=== PATIENT | female | born 2000 | race Two or more races ===

== ENCOUNTER 2022-10-06 14:33 | Emergency (ER) | payer MEDICAID, OTHER ==
[~2022-10-06] VITALS: Ht 165.1 cm; Wt 80.4 kg
[2022-10-06 15:43] LABS: Basophils # (auto) 0 10 ^3/uL (0-0.2); Basophils % (auto) 0.2 % (0.0-2.0); Eosinophils # (auto) 0 10 ^3/uL (0-0.8); Eosinophils % (auto) 0.2 % (0.0-7.0); Hematocrit 44.6 % (36.0-46.0); Hemoglobin 15.3 g/dL (12.2-16.2); Lymphocytes # (auto) 3.7 10 ^3/uL (0.4-5.4); Lymphocytes % (auto) 27.7 % (10.0-50.0); Mean Corpuscular Hemoglobin 31.9 pg (28.0-32.0); Mean Corpuscular Hgb Conc. 34.3 g/dL (32.0-36.0); Monocytes # (auto) 0.6 10 ^3/uL (0-1.3); Monocytes % (auto) 4.5 % (0.0-12.0); Neutrophils # (auto) 9.1 10 ^3/uL (1.6-8.6); Neutrophils % (auto) 67.4 % (37.0-80.0); Nucleated Red Blood Cells % 0.1 %; Red Cell Distribution Width 13.5 % (11.8-14.3); White Blood Cell 13.5 10^3/uL (4.4-10.8)
[2022-10-06 16:00] LABS: Urine Bacteria NONE SEEN /hpf (None Seen); Urine Blood 3+ /uL (Negative); Urine WBC 35 /hpf (0 - 5)
[2022-10-06 16:04] LABS: Urine Specific Gravity 1.025 (1.001-1.035)
[2022-10-06 16:05] LABS: Albumin 4.2 g/dL (3.4-5.0); Calcium 9.6 mg/dL (8.5-10.1); Potassium 4.3 mmol/L (3.5-5.1)
[2022-10-06 16:09] LABS: BUN/Creatinine Ratio 12.5; Total Protein 7.5 g/dL (6.4-8.2)
[2022-10-06] MEDS ORDERED: CEFP200T15 PO (20:19)
[2022-10-06 21:10] VITALS: BP 127/76
== END 2022-10-06 21:19 | disposition home or self-care (01) ==
LOC: ER 14:33
DX: O46.8X1 Other antepartum hemorrhage, first trimester (principal); O23.41 Unspecified infection of urinary tract in pregnancy, first trimester; N39.0 Urinary tract infection, site not specified; R10.2 Pelvic and perineal pain; Z3A.01 Less than 8 weeks gestation of pregnancy
CPT/HCPCS: 36415; 76801; 76817; 80053; 81001; 81025; 84702; 85025; 86850; 86900; 86901

== ENCOUNTER 2023-03-26 08:04 | Emergency (ER) | payer MEDICAID ==
[~2023-03-26] VITALS: Ht 165.1 cm; Wt 77.2 kg
[~2023-03-26 08:04] MED LIST: CEFP200T15 PO; CIPR-173 PO
[2023-03-26 08:30] VITALS: BP 107/50; PULSE 84; RESP 16; TEMP 98.1; O2SAT 98
[2023-03-26 08:58] LABS: Basophils # (auto) 0 10 ^3/uL (0-0.2); Basophils % (auto) 0.5 % (0.0-2.0); Eosinophils # (auto) 0.1 10 ^3/uL (0-0.8); Eosinophils % (auto) 0.7 % (0.0-7.0); Hematocrit 42.8 % (36.0-46.0); Hemoglobin 14.3 g/dL (12.2-16.2); Lymphocytes # (auto) 3.3 10 ^3/uL (0.4-5.4); Lymphocytes % (auto) 36.6 % (10.0-50.0); Mean Corpuscular Hemoglobin 31.5 pg (28.0-32.0); Mean Corpuscular Hgb Conc. 33.3 g/dL (32.0-36.0); Mean Corpuscular Volume 94.6 fL (80.0-100.0); Monocytes # (auto) 0.5 10 ^3/uL (0-1.3); Monocytes % (auto) 5.8 % (0.0-12.0); Neutrophils # (auto) 5.1 10 ^3/uL (1.6-8.6); Neutrophils % (auto) 56.4 % (37.0-80.0); Nucleated Red Blood Cells % 0.1 %; Red Blood Cells 4.53 10^6/uL (4.0-5.20); Red Cell Distribution Width 13.1 % (11.8-14.3)
[2023-03-26 09:03] LABS: Urine Bacteria FEW /hpf (None Seen); Urine Blood 2+ /uL (Negative); Urine Clarity HAZY (Clear); Urine Color Yellow (Yellow); Urine Mucus FEW (None Seen); Urine Protein, UAD Negative (Negative); Urine Specific Gravity 1.021 (1.001-1.035); Urine Urobilinogen Normal (Negative); Urine WBC 9 /hpf (0 - 5)
[2023-03-26 09:12] LABS: Alanine Aminotransferase 12 U/L (7-40); Albumin 4.2 g/dL (3.2-4.8); Alkaline Phosphatase 84 U/L (46-116); Anion Gap 8.3 (5-15); Aspartate Aminotransferase 10 U/L (13-40); BUN/Creatinine Ratio 14.9 (10.0-20.0); Bilirubin, Total 0.5 mg/dL (0.2-1.0); Blood Urea Nitrogen 10 mg/dL (9-23); Calcium 9.3 mg/dL (8.5-10.1); Carbon Dioxide 23.7 mmol/L (20-30); Chloride 108 mmol/L (98-107); Glucose 89 mg/dL (74-106); Sodium 140 mmol/L (136-145); Total Protein 6.6 g/dL (5.7-8.2)
[2023-03-26] MEDS ORDERED: NAPR-746 PO (09:38)
[2023-03-26] MEDS ORDERED: BACDST PO (09:38)
== END 2023-03-26 09:43 | disposition home or self-care (01) ==
LOC: ER 08:04
DX: N39.0 Urinary tract infection, site not specified (principal); F12.10 Cannabis abuse, uncomplicated; Z32.02 Encounter for pregnancy test, result negative
CPT/HCPCS: 36415; 74176; 80053; 81001; 81025; 85025

== ENCOUNTER 2023-04-13 17:49 | Emergency (ER) | payer MEDICAID ==
[~2023-04-13] VITALS: Ht 165.1 cm; Wt 73.5 kg
[~2023-04-13 17:49] MED LIST changes: +BACDST PO; +NAPR-746 PO
[2023-04-13 18:22] LABS: Basophils # (auto) 0.1 10 ^3/uL (0-0.2); Basophils % (auto) 0.6 % (0.0-2.0); Eosinophils # (auto) 0.1 10 ^3/uL (0-0.8); Eosinophils % (auto) 1.5 % (0.0-7.0); Hematocrit 42.4 % (36.0-46.0); Hemoglobin 14.3 g/dL (12.2-16.2); Lymphocytes # (auto) 2.9 10 ^3/uL (0.4-5.4); Lymphocytes % (auto) 30.4 % (10.0-50.0); Mean Corpuscular Hemoglobin 31.9 pg (28.0-32.0); Mean Corpuscular Hgb Conc. 33.6 g/dL (32.0-36.0); Mean Corpuscular Volume 94.8 fL (80.0-100.0); Monocytes # (auto) 0.5 10 ^3/uL (0-1.3); Monocytes % (auto) 5.7 % (0.0-12.0); Neutrophils # (auto) 5.8 10 ^3/uL (1.6-8.6); Neutrophils % (auto) 61.8 % (37.0-80.0); Red Blood Cells 4.47 10^6/uL (4.0-5.20); Red Cell Distribution Width 13.4 % (11.8-14.3); White Blood Cell 9.4 10^3/uL (4.4-10.8)
[2023-04-13 18:31] LABS: Urine Bacteria NONE SEEN /hpf (None Seen); Urine Blood 1+ /uL (Negative); Urine Clarity Clear (Clear); Urine Color Yellow (Yellow); Urine Mucus FEW (None Seen); Urine Protein, UAD TRACE (Negative); Urine Specific Gravity 1.034 (1.001-1.035); Urine WBC 1 /hpf (0 - 5)
[2023-04-13 18:40] LABS: Alanine Aminotransferase 10 U/L (7-40); Albumin 4.5 g/dL (3.2-4.8); Alkaline Phosphatase 90 U/L (46-116); Anion Gap 4.6 (5-15); Aspartate Aminotransferase 10 U/L (13-40); BUN/Creatinine Ratio 16.5 (10.0-20.0); Blood Urea Nitrogen 15 mg/dL (9-23); Calcium 9.5 mg/dL (8.7-10.4); Carbon Dioxide 28.4 mmol/L (20-30); Chloride 108 mmol/L (98-107); Glucose 91 mg/dL (74-106); Potassium 3.6 mmol/L (3.5-5.1); Sodium 141 mmol/L (136-145)
[2023-04-13 18:41] LABS: Bilirubin, Total 0.8 mg/dL (0.2-1.0); Total Protein 7.2 g/dL (5.7-8.2)
[2023-04-13] MEDS ORDERED: traMADol HCL 50 MG TAB PO ONE (19:45)
[2023-04-13 19:58] VITALS: BP 123/78; PULSE 67; RESP 18; TEMP 98.4; O2SAT 100
== END 2023-04-14 00:13 | disposition home or self-care (01) ==
LOC: ER 17:49
DX: R10.2 Pelvic and perineal pain (principal); Z90.89 Acquired absence of other organs; Z79.2 Long term (current) use of antibiotics; Z79.899 Other long term (current) drug therapy
CPT/HCPCS: 36415; 76830; 76856; 80053; 81001; 84702; 85025

== ENCOUNTER 2023-05-09 17:28 | Emergency (ER) | payer MEDICAID ==
[~2023-05-09] VITALS: Ht 165.1 cm; Wt 73.7 kg
[2023-05-09 17:34] VITALS: BP 119/71; PULSE 106; RESP 18; O2SAT 98
== END 2023-05-09 21:24 | disposition home or self-care (01) ==
LOC: ER 17:28
DX: O26.891 Other specified pregnancy related conditions, first trimester (principal); R10.2 Pelvic and perineal pain; R10.9 Unspecified abdominal pain; Z3A.01 Less than 8 weeks gestation of pregnancy
CPT/HCPCS: 36415; 76801; 81025; 84702

== ENCOUNTER 2023-07-04 05:42 | Emergency (ER) | payer MEDICAID ==
[~2023-07-04] VITALS: Ht 165.1 cm; Wt 74.6 kg
[2023-07-04 06:20] VITALS: PULSE 77; RESP 77; O2SAT 100
[2023-07-04 06:36] LABS: Urine Bacteria FEW /hpf (None Seen); Urine Blood Negative /uL (Negative); Urine Budding Yeast FEW /hpf (None Seen); Urine Clarity HAZY (Clear); Urine Mucus FEW (None Seen); Urine Protein, UAD Negative (Negative); Urine Specific Gravity 1.014 (1.001-1.035); Urine Urobilinogen Normal (Negative); Urine WBC 2 /hpf (0 - 5)
[2023-07-04 06:37] LABS: Urine Color Straw (Yellow)
[2023-07-04 06:40] LABS: Basophils # (auto) 0 10 ^3/uL (0-0.2); Basophils % (auto) 0.3 % (0.0-2.0); Eosinophils # (auto) 0.1 10 ^3/uL (0-0.8); Eosinophils % (auto) 0.4 % (0.0-7.0); Hematocrit 39.4 % (36.0-46.0); Hemoglobin 13.5 g/dL (12.2-16.2); Lymphocytes # (auto) 2.5 10 ^3/uL (0.4-5.4); Mean Corpuscular Hemoglobin 32.2 pg (28.0-32.0); Mean Corpuscular Hgb Conc. 34.3 g/dL (32.0-36.0); Mean Corpuscular Volume 93.9 fL (80.0-100.0); Monocytes # (auto) 0.6 10 ^3/uL (0-1.3); Monocytes % (auto) 4.9 % (0.0-12.0); Neutrophils # (auto) 8.7 10 ^3/uL (1.6-8.6); Neutrophils % (auto) 73.4 % (37.0-80.0); Nucleated Red Blood Cells % 0.1 %; Red Cell Distribution Width 13.4 % (11.8-14.3); White Blood Cell 11.8 10^3/uL (4.4-10.8)
[2023-07-04 06:56] LABS: Alanine Aminotransferase 13 U/L (7-40); Albumin 4.2 g/dL (3.2-4.8); Alkaline Phosphatase 62 U/L (46-116); Anion Gap 7 (5-15); Aspartate Aminotransferase 9 U/L (13-40); Bilirubin, Total 0.7 mg/dL (0.2-1.0); Carbon Dioxide 25 mmol/L (20-30); Chloride 104 mmol/L (98-107); Glucose 83 mg/dL (74-106); Potassium 3.5 mmol/L (3.5-5.1); Sodium 136 mmol/L (136-145); Total Protein 6.6 g/dL (5.7-8.2)
[2023-07-04 06:57] LABS: BUN/Creatinine Ratio 9.1 (10.0-20.0); Blood Urea Nitrogen < 5 mg/dL (9-23)
[2023-07-04 07:44] VITALS: PULSE 71; RESP 71; O2SAT 98
[2023-07-04 10:09] VITALS: BP 99/57; PULSE 74; RESP 16; O2SAT 98
== END 2023-07-04 11:47 | disposition home or self-care (01) ==
LOC: ER 05:42
DX: O46.8X1 Other antepartum hemorrhage, first trimester (principal); R10.2 Pelvic and perineal pain; Z3A.12 12 weeks gestation of pregnancy
CPT/HCPCS: 36415; 76801; 80053; 81001; 81025; 84702; 85025; 86850; 86900; 86901

== ENCOUNTER 2023-08-15 18:22 | Emergency (ER) | payer MEDICAID ==
[~2023-08-15] VITALS: Ht 165.1 cm; Wt 75.8 kg
[2023-08-15 18:39] VITALS: BP 107/63; PULSE 93; RESP 17; O2SAT 98
[2023-08-15] MEDS ORDERED: ACETAMINOPHEN 325 MG TAB PO ONE (19:30)
[2023-08-15 20:55] LABS: Urine Amorphous Crystal FEW /hpf (None Seen); Urine Bacteria NONE SEEN /hpf (None Seen); Urine Blood Negative /uL (Negative); Urine Clarity HAZY (Clear); Urine Color Yellow (Yellow); Urine Protein, UAD TRACE (Negative); Urine Urobilinogen Normal (Negative); Urine WBC 9 /hpf (0 - 5)
== END 2023-08-15 21:44 | disposition left against medical advice (07) ==
LOC: ER 18:22
DX: O23.42 Unspecified infection of urinary tract in pregnancy, second trimester (principal); N39.0 Urinary tract infection, site not specified; Z3A.18 18 weeks gestation of pregnancy
CPT/HCPCS: 81001

== ENCOUNTER 2023-11-30 05:35 | Observation (INO) | payer MEDICAID ==
[2023-11-30] MEDS ORDERED: NITR-87 PO (06:49)
== END 2023-11-30 06:57 | disposition home or self-care (01) ==
LOC: LDRP 05:35
PROVIDERS: ADMIT Obstetrics & Gynecology; ATTEND Obstetrics & Gynecology
DX: O23.43 Unspecified infection of urinary tract in pregnancy, third trimester (principal); O62.9 Abnormality of forces of labor, unspecified; O26.893 Other specified pregnancy related conditions, third trimester; R10.9 Unspecified abdominal pain; Z3A.33 33 weeks gestation of pregnancy
CPT/HCPCS: 59025; 81002; G0378

== ENCOUNTER 2023-12-17 20:07 | Observation (INO) | payer MEDICAID ==
[~2023-12-17] VITALS: Ht 165.1 cm; Wt 86.2 kg
[~2023-12-17 20:07] MED LIST changes: +NITR-87 PO
[2023-12-17 21:16] LABS: Fern Testing Negative
[2023-12-17] MEDS: LACTATED RINGER'S 1,000 ML IV SCH (21:42)
[2023-12-17] MEDS: TERBUTALINE SULFATE 1 MG/ML 1ML VIAL SC SCH (21:53)
[2023-12-17] MEDS: BETAMETHASONE ACET (30mg/5ml) 5ml Vial 6mg/ml IM ONE (21:55)
[2023-12-17 22:09] LABS: Urine Amorphous Crystal FEW /hpf (None Seen); Urine Bacteria FEW /hpf (None Seen); Urine Blood Negative /uL (Negative); Urine Clarity Turbid (Clear); Urine Color Yellow (Yellow); Urine Mucus FEW (None Seen); Urine Protein, UAD TRACE (Negative); Urine Specific Gravity 1.022 (1.001-1.035); Urine Urobilinogen Normal (Negative); Urine WBC 6 /hpf (0 - 5); Urine WBC Clumps PRESENT /hpf (None Seen)
[2023-12-18] MEDS ORDERED: PRENCAP11 PO (01:10)
== END 2023-12-18 01:04 | disposition home or self-care (01) ==
LOC: LDRP 20:07
PROVIDERS: ADMIT Obstetrics & Gynecology; ATTEND Obstetrics & Gynecology
DX: O60.03 Preterm labor without delivery, third trimester (principal); Z3A.35 35 weeks gestation of pregnancy
CPT/HCPCS: 59025; 76805; 76817; 81001; 81002; 94760; 96360; 96361; 96372; G0378; J0702; J3105; Q0114; 96366

== ENCOUNTER 2023-12-19 21:13 | Observation (INO) | payer MEDICAID ==
[~2023-12-19 21:13] MED LIST changes: -BACDST PO; -CEFP200T15 PO; -CIPR-173 PO; -NAPR-746 PO; -NITR-87 PO; +PRENCAP11 PO
== END 2023-12-19 23:29 | disposition home or self-care (01) ==
LOC: LDRP 21:13
PROVIDERS: ADMIT Obstetrics & Gynecology; ATTEND Obstetrics & Gynecology
DX: O47.03 False labor before 37 completed weeks of gestation, third trimester (principal); Z3A.35 35 weeks gestation of pregnancy
CPT/HCPCS: 59025; 94760; G0378

== ENCOUNTER 2023-12-24 15:57 | Observation (INO) | payer MEDICAID ==
[2023-12-24] MEDS: LACTATED RINGER'S 1,000 ML IV ONE (17:17)
== END 2023-12-24 19:18 | disposition home or self-care (01) ==
LOC: LDRP 15:57 → UNDOADMOB 15:57 → LDRP 16:06 → UNDODISOB 19:18
PROVIDERS: ADMIT Obstetrics & Gynecology; ATTEND Obstetrics & Gynecology
DX: O62.9 Abnormality of forces of labor, unspecified (principal); O26.893 Other specified pregnancy related conditions, third trimester; R10.2 Pelvic and perineal pain; Z3A.36 36 weeks gestation of pregnancy
CPT/HCPCS: 59025; 76805; 81002; 94760; 96360; 96361; G0378

== ENCOUNTER 2023-12-30 16:30 | Observation (INO) | payer MEDICAID | END 2023-12-30 17:25 | disposition left against medical advice (07) | LOC: LDRP 16:30 | PROVIDERS: ADMIT Obstetrics & Gynecology; ATTEND Obstetrics & Gynecology | DX: O26.893 Other specified pregnancy related conditions, third trimester (principal); R46.2 Strange and inexplicable behavior; Z3A.36 36 weeks gestation of pregnancy ==

== ENCOUNTER 2024-06-14 11:34 | Emergency (ER) | payer MEDICAID ==
[~2024-06-14] VITALS: Ht 167.6 cm; Wt 86.0 kg
--- NOTE | 2024-06-14 14:10 | ED.PDOC ---
History of Present Illness HPI Comments 23 y/o female pt presents to the clinic for cough, bilateral ear pain, facial pain, congestion and fevers x 1 day. Pt reports that she has not taken anything for the symptoms. Pt reports that she is . LMP 05-07-2024. Patient has not yet followed up with OBGYN. Patient also requesting beta testing. Patient advised that hCG quant testing needs to be performed by her OBGYN. 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 History: No Pertinent MECHANICAL EQUIPMENT TEST ENGINEER History, Spontaneous Family History Family History: Reviewed,noncontributory to illness Social History Smoker: Non-Smoker Alcohol: Denies ETOH Use Drugs: Denies Drug Use Lives In: Home EENTM: reports: ear pain, throat pain Respiratory: reports: cough Physical Exam General Appearance: No Apparent Distress HEENT: Pharyngeal Erythema, Sinuses Neck: Full Range of Motion, Non-Tender, Normal, Normal Inspection Respiratory: Chest Non-Tender, Lungs Clear, No Accessory Muscle Use, No Respiratory Distress, Normal Breath Sounds Cardiovascular: No Edema, No JVD, No Murmur, No Gallop, Normal Peripheral Pulses, Regular Rate/Rhythm Breast Exam: Deferred Gastrointestinal: No Organomegaly, Non Tender, No Pulsatile Mass, Normal Bowel Sounds, Soft Genitalia: Deferred Pelvic: Deferred Rectal: Deferred Extremities: No calf tenderness, Normal capillary refill, Normal inspection, Normal range of motion, Non-tender, No pedal edema Neurologic: Alert, 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 Was a procedure done?: No Differential Dx Considerations may include: influenza, Covid, Sinusitis X-Ray, Labs, Meds, VS Vital Signs Date Time Temp Pulse Resp B/P (MAP) Pulse Ox O2 Delivery O2 Flow Rate FiO2 06/14/24 14:50 98.7 06/14/24 14:25 105 18 98 Room Air* 0 21 06/14/24 14:25 98.8 105 16 119/82 (94) 98 98.8 06/14/24 11:41 99.4 100 16 112/71 (85) 97 Lab Test 06/14/24 14:12 Range/Units Influenza Type A Antigen Negative Negative Influenza Type B Antigen Negative Negative SARS-CoV-2 Antigen (Rapid) Negative NEGATIVE Current Medications Medications (Trade) Dose Ordered Sig/Leonardo Route Start Time Stop Time Status Last Admin Acetaminophen (Tylenol Tablet) 1,000 mg ONCE ONCE PO 06/14/24 14:15 06/14/24 14:22 DC 06/14/24 14:50 X-Ray, Labs, Meds, VS Comment Patient eloped from ER. Patient was aware that we were waiting for results from influenza and COVID swabs. Patient left due to stating that she needed to rest at home. Patient alert and oriented. Patient appeared comfortable. Resp irations are even and labored. Patient eating food while waiting for results and tolerating well. Time of 1ST Reevaluation: 13:45 Reevaluation 1ST: Unchanged Patient Education/Counseling: Other (Patient eloped) Family Education/Counseling: Other (Patient eloped) Departure 1 Departure Time of Disposition: 15:30 Impression: Primary Impression: Eloped from emergency department Disposition: 01 HOME / SELF CARE / HOMELESS Condition: Stable Discharged With: Other (Eloped) Critical Care Note Critical Care Time?: No Stability Stability form required: No Heart Score Heart Score: Heart Score Response (Comments) Value History N/A 0 EKG N/A 0 Age N/A 0 Risk Factors N/A 0 Troponin N/A 0 Total 0 ALIREZA DUONGP Jun 14, 2024 14:10
[2024-06-14 14:25] VITALS: BP 119/82; PULSE 105; RESP 18; O2SAT 98
[2024-06-14 14:50] VITALS: TEMP 98.7
[2024-06-14] MEDS: ACETAMINOPHEN 500 MG TAB PO ONE (14:50)
[2024-06-14 15:19] LABS: Rapid Influenza A Negative (Negative); Rapid Influenza B Negative (Negative)
[2024-06-14 15:20] LABS: COVID19 ANTIGEN SOFIA FIA NEGATIVE (NEGATIVE)
== END 2024-06-14 15:14 | disposition left against medical advice (07) ==
LOC: EDBD 11:34 → ER 11:34
DX: O26.891 Other specified pregnancy related conditions, first trimester (principal); H92.03 Otalgia, bilateral; R05.9 Cough, unspecified; R51.9 Headache, unspecified; R07.0 Pain in throat; R50.9 Fever, unspecified; Z3A.01 Less than 8 weeks gestation of pregnancy; Z90.89 Acquired absence of other organs; Z20.822 Contact with and (suspected) exposure to COVID-19; Z79.899 Other long term (current) drug therapy; Z53.29 Procedure and treatment not carried out because of patient's decision for other reasons
CPT/HCPCS: 36415; 87426; 87804

== ENCOUNTER 2025-01-03 19:25 | Emergency (ER) | payer MEDICAID | END 2025-01-03 20:31 | disposition left against medical advice (07) | LOC: ER 19:25 | DX: N93.9 Abnormal uterine and vaginal bleeding, unspecified (principal); Z53.21 Procedure and treatment not carried out due to patient leaving prior to being seen by health care provider ==